=== PATIENT | female | born 1995 | race Caucasian/White ===

== ENCOUNTER 2017-07-22 21:13 | Emergency (ER) | payer MEDICAID ==
[2017-07-22 21:42] VITALS: TEMP 98.2; O2SAT 97
--- NOTE | 2017-07-22 21:52 | EDPHY ---
H & P Stated Complaint: 18 HPI/ROS: HPI CHIEF COMPLAINT: Itchy skin, rash HISTORY OF PRESENT ILLNESS: This patient very pleasant 22-year-old female she is otherwise healthy with no significant medical history she presents emergency room with pruritus, and urticaria diffusely throughout her skin. She denies fever. Denies recent illness. Denies new medications soaps or detergents. She states that this started earlier in the week however it has progressively gotten worse. She has no mucosal lesions. Denies any urinary symptoms denies fever, denies chest pain or shortness of breath. Main complaint diffuse rash, diffuse pruritus. 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 Smokes tobacco daily, denies illicit drugs. Family History: Noncontributory ROS REVIEW OF SYSTEMS: A comprehensive 10 point review of systems is otherwise negative aside from elements mentioned in the history of present illness. Exam Constitutional appears well nontoxic triage nursing summary reviewed, vital signs reviewed, awake/alert. Eyes normal conjunctivae and sclera, EOMI, PERRLA. HENT oropharynx unremarkable mucosal lesions normal inspection, atraumatic, moist mucus membranes, no epistaxis, neck supple/ no meningismus, no raccoon eyes. Respiratory clear to auscultation bilaterally, normal breath sounds, no respiratory distress, no wheezing. Cardiovascular rate normal, regular rhythm, no murmur, no edema, distal pulses normal. Gastrointestinal soft, non-tender, no rebound, no guarding, normal bowel sounds, no distension, no pulsatile mass. Genitourinary no CVA tenderness. Musculoskeletal no midline vertebral tenderness, full range of motion, no calf swelling, no tenderness of extremities, no meningismus, good pulses, neurovascularly intact. Skin diffuse to raise pruritic urticaria ache swallow lesions. Sandpaper like throughout her entire body. No mucosal lesions. Spares the palms and soles. Neurologic awake, alert and oriented x 3, AAOx3, moves all 4 extremities equally, motor intact, sensory intact, CN II-XII intact, normal cerebellar, normal vision, normal speech. Psychiatric normal mood/affect. Heme/Lymph/Immune no lymphadenopathy. Differential Diagnosis: Includes but is not limited to in a particular order acute vasculitis, acute allergic reaction, urticaria, drug reaction, contact dermatitis, pityriasis rosacea Medical Decision Making: Plan for this patient IV establishment IV fluid bolus basic blood work, IV Solu-Medrol,, IV Benadryl, IV Pepcid, and re-evaluate. Re-evaluation: 2307: I did re-evaluate this patient at this time no acute distress. Fact she was sleeping. She received IV Solu-Medrol 125 mg 50 mg IV Benadryl, and Pepcid she is doing much improved. She feels much better in terms of her urticaria type rash it has resolved. It is pretty much clear throughout her body. I went over return precautions with her. She understands return emergency room if develops worsening symptoms. This includes worsening rash, fever, vomiting not feeling well. I will prescribe her prednisone for 5 days per 60 mg, Pepcid, Benadryl that she take daily as well as an epinephrine pen. I do recommend she follows up with a private pilot. Source: Patient - Personal History LMP (Females 10-55): Now Current Tetanus/Diphtheria Vaccine: Yes - Medical/Surgical History Hx Asthma: No Hx Chronic Respiratory Disease: No Hx Diabetes: No Hx Cardiac Disease: No Hx Renal Disease: No Hx Cirrhosis: No Hx Alcoholism: No Hx HIV/AIDS: No Hx Splenectomy or Spleen Trauma: No Other PMH: tonsilectomy, VASOVAGAL SYNCOPE, PRONE TO UTI - Social History Smoking Status: Current every day smoker Constitutional: Initial Vital Signs Temperature (C) 36.8 C 07/22/17 21:38 Heart Rate 80 07/22/17 21:38 Respiratory Rate 20 07/22/17 21:38 Blood Pressure 114/103 H 07/22/17 21:38 O2 Sat (%) 97 07/22/17 21:38 O2 Delivery Mode Room Air Allergies/Adverse Reactions: Penicillins Allergy (Severe, Verified 07/22/17 21:38) Other-Enter Comments Home Medications: Medication Instructions Recorded EPINEPHRINE [EPIPEN] 0.3 mg IM ONCE #2 syr 07/22/17 Famotidine [Pepcid 20 MG (*)] 20 mg PO BID #10 tab 07/22/17 diphenhydrAMINE [Benadryl 25 MG 25 mg PO BID #10 tab 07/22/17 (*)] predniSONE 60 mg PO DAILY #15 tab 07/22/17 Medical Decision Making - Data Points Laboratory Results: Laboratory Results 07/22/17 22:00 07/22/17 22:00 07/22/17 07/22/17 07/22/17 22:00 22:00 22:00 WBC 8.30 10^3/uL 10^3/uL (3.80-9.50) RBC 4.15 10^6/uL L 10^6/uL (4.18-5.33) Hgb 14.0 g/dL g/dL (12.6-16.3) Hct 40.5 % % (38.0-47.0) MCV 97.6 fL fL (81.5-99.8) MCH 33.7 pg pg (27.9-34.1) MCHC 34.6 g/dL g/dL (32.4-36.7) RDW 11.9 % % (11.5-15.2) Plt Count 255 10^3/uL 10^3/uL (150-400) MPV 9.3 fL fL (8.7-11.7) Neut % (Auto) 63.8 % % (39.3-74.2) Lymph % (Auto) 26.6 % % (15.0-45.0) [place] % (Auto) 5.7 % % (4.5-13.0) Eos % (Auto) 2.5 % % (0.6-7.6) Baso % (Auto) 1.2 % % (0.3-1.7) Nucleat RBC Rel Count 0.0 % % (0.0-0.2) Absolute Neuts (auto) 5.29 10^3/uL 10^3/uL (1.70-6.50) Absolute Lymphs (auto) 2.21 10^3/uL 10^3/uL (1.00-3.00) Absolute Monos (auto) 0.47 10^3/uL 10^3/uL (0.30-0.80) Absolute Eos (auto) 0.21 10^3/uL 10^3/uL (0.03-0.40) Absolute Basos (auto) 0.10 10^3/uL 10^3/uL (0.02-0.10) Absolute Nucleated RBC 0.00 10^3/uL 10^3/uL (0-0.01) Immature Gran % 0.2 % % (0.0-1.1) Immature Gran # 0.02 10^3/uL 10^3/uL (0.00-0.10) Sodium 137 mEq/L mEq/L (135-145) Potassium 4.0 mEq/L mEq/L (3.5-5.2) Chloride 100 mEq/L mEq/L (97-110) Carbon Dioxide 28 mEq/l mEq/l (22-31) Anion Gap 9 mEq/L mEq/L (8-16) BUN 13 mg/dL mg/dL (7-23) Creatinine 0.8 mg/dL mg/dL (0.6-1.0) Estimated GFR > 60 Glucose 97 mg/dL mg/dL (70-100) Calcium 9.5 mg/dL mg/dL (8.5-10.4) Total Bilirubin 1.0 mg/dL mg/dL (0.1-1.4) Conjugated Bilirubin 0.3 mg/dL mg/dL (0.0-0.5) Unconjugated Bilirubin 0.7 mg/dL mg/dL (0.0-1.1) AST 33 IU/L IU/L (14-46) ALT 34 IU/L IU/L (9-52) Alkaline Phosphatase 43 IU/L IU/L (38-126) Total Protein 7.3 g/dL g/dL (6.3-8.2) Albumin 4.3 g/dL g/dL (3.5-5.0) Beta HCG, Qual NEGATIVE Medications Given: Discontinued Medications Diphenhydramine HCl (Benadryl Injection) 50 mg IVP EDNOW ONE Stop: 07/22/17 22:00 Last Admin: 07/22/17 22:06 Dose: 50 mg Famotidine (Pepcid) 20 mg IVP EDNOW ONE Stop: 07/22/17 22:00 Last Admin: 07/22/17 22:12 Dose: 20 mg Sodium Chloride (Ns) 1,000 mls @ 0 mls/hr IV EDNOW ONE; Wide Open PRN Reason: Protocol Stop: 07/22/17 21:59 Last Admin: 07/22/17 22:05 Dose: 1,000 mls Methylprednisolone Sodium Succinate (Solu-Medrol) 125 mg IVP EDNOW ONE Stop: 07/22/17 22:00 Last Admin: 07/22/17 22:09 Dose: 125 mg Departure - Departure Disposition: Home, Routine, Self-Care Clinical Impression: Allergic reaction Qualifiers: Encounter type: initial encounter Qualified Code(s): T78.40XA - Allergy, unspecified, initial encounter Condition: Good Instructions: Urticaria (ED), Allergy Testing (ED) Additional Instructions: 1. Return emergency room if you have any worsening symptoms questions or concerns. 2. Specifically return if you have worsening rash or allergic reaction type symptoms. 3. Prednisone for 5 days 4. Benadryl for 5 days 5. Pepcid for 5 days 6. Follow up with an private pilot. 7. Administered epinephrine pen if you have severe allergic reaction and immediately call 911. Referrals: NONE *PRIMARY CARE P,. [Primary Care Provider] - As per Instructions Prescriptions: diphenhydrAMINE [Benadryl 25 MG (*)] 25 mg PO BID #10 tab EPINEPHRINE [EPIPEN] 0.3 mg IM ONCE #2 syr Famotidine [Pepcid 20 MG (*)] 20 mg PO BID #10 tab predniSONE 60 mg PO DAILY #15 tab
[2017-07-22] MEDS ORDERED: NS 1,000 ML IV ONE (21:58)
[2017-07-22] MEDS ORDERED: FAMOTIDINE 20 MG/2 ML SDV IVP ONE (21:59)
[2017-07-22] MEDS ORDERED: methylPREDNISolone SOD SUCC 125 MG/2 ML VIAL IVP ONE (21:59)
[2017-07-22 22:15] LABS: PLATELET COUNT 255 10^3/uL (150-400)
[2017-07-22 22:55] VITALS: RESP 16
[2017-07-22 23:20] VITALS: BP 110/85; PULSE 77
== END 2017-07-22 23:20 | disposition home or self-care (01) ==
PROC: 3E0337Z Introduction of Electrolytic and Water Balance Substance into Peripheral Vein, Percutaneous Approach (ICD-10-PCS; principal; 2017-07-22)
DX: T78.40XA Allergy, unspecified, initial encounter (principal); F17.200 Nicotine dependence, unspecified, uncomplicated; E86.9 Volume depletion, unspecified
CPT/HCPCS: 96374; J1200; J2930

== ENCOUNTER 2017-07-24 12:19 | Emergency (ER) | payer MEDICAID ==
[2017-07-24 12:24] VITALS: BP 123/73; PULSE 77; RESP 18; TEMP 98.1; O2SAT 97
--- NOTE | 2017-07-24 12:52 | EDPHY ---
H & P Stated Complaint: rash, recently here, not better Time Seen by Provider: 07/24/17 12:35 HPI/ROS: Chief Complaint: Hives HPI: 22-year-old woman has been having worsening hives for the last 10 days. She was seen here 2 days ago and started on prednisone, Pepcid and diphenhydramine. She has been taking these. This morning she noticed that the hives or forearm seem to become confluent. She has an appointment with a new a primary care physician today is planning to get a referral to an turner off. No shortness of breath or swelling. No cough. No lightheadedness or fainting. No new food or environmental exposures that she is aware of. No fevers or chills. It is pruritic but not painful. No other medical problems. ROS: 10 point Review of Systems is negative except as noted in the HPI. PMH: Vasovagal syncope Social History: [No] smoking, [no] alcohol, [ no recreational drug use] Family History: [non-contributory] Physical Exam: Gen: [Awake], [Alert], [No Distress] HEENT: [ ] [Nose: no rhinorrhea] Eyes: [PERRLA], [EOMI] Mouth: [Moist mucosa] no oral pharyngeal area edema, uvula is midline Neck: [Supple], [no JVD] Chest: [nontender], [lungs clear to auscultation] Heart: [S1, S2 normal], [no murmur] Abd: [Soft], [non-tender], [no guarding] Back: [no CVA tenderness], [no] midline tenderness [] Ext: [no] edema, [non-tender] Skin: Diffuse urticarial blanching rash primarily on the abdomen legs and arms. She has positive dermatographia. Neuro: [CN II-XII intact], [Sensation grossly intact], Strength [5]/5 in [ bilateral] [upper and] [lower] extremities - Personal History LMP (Females 10-55): Now Current Tetanus/Diphtheria Vaccine: Yes Current Tetanus Diphtheria and Acellular Pertussis (TDAP): Yes - Medical/Surgical History Hx Asthma: No Hx Chronic Respiratory Disease: No Hx Diabetes: No Hx Cardiac Disease: No Hx Renal Disease: No Hx Cirrhosis: No Hx Alcoholism: No Hx HIV/AIDS: No Hx Splenectomy or Spleen Trauma: No Other PMH: tonsilectomy, VASOVAGAL SYNCOPE, PRONE TO UTI - Social History Smoking Status: Current every day smoker Constitutional: Initial Vital Signs Temperature (C) 36.7 C 07/24/17 12:23 Heart Rate 77 07/24/17 12:23 Respiratory Rate 18 07/24/17 12:23 Blood Pressure 123/73 H 07/24/17 12:23 O2 Sat (%) 97 07/24/17 12:23 O2 Delivery Mode Room Air Allergies/Adverse Reactions: Penicillins Allergy (Severe, Verified 07/22/17 21:38) Other-Enter Comments Home Medications: Medication Instructions Recorded EPINEPHRINE [EPIPEN] 0.3 mg IM ONCE #2 syr 07/22/17 Famotidine [Pepcid 20 MG (*)] 20 mg PO BID #10 tab 07/22/17 diphenhydrAMINE [Benadryl 25 MG 25 mg PO BID #10 tab 07/22/17 (*)] predniSONE 60 mg PO DAILY #15 tab 07/22/17 Medical Decision Making ED Course/Re-evaluation: 22-year-old patient with hives. No airway involvement or findings suggestive of anaphylaxis. She has positive dermatographia. She has an appointment this afternoon with primary care. I think she will be best served by follow up with an turner off. I do not have any recommendations regarding her medication regimen at this time. She will return for any symptoms of angioedema, anaphylaxis including difficulty breathing, swelling, fainting, lightheadedness , or any other concerns. Departure - Departure Disposition: Home, Routine, Self-Care Clinical Impression: Urticaria Condition: Good Instructions: Urticaria (ED) Additional Instructions: Follow up with primary care physician today for referral to an turner off. Return to the emergency department for difficulty breathing, cough, shortness of breath, fainting, or any other concerns. Referrals: NONE *PRIMARY CARE P,. [Primary Care Provider] - As per Instructions
== END 2017-07-24 13:06 | disposition home or self-care (01) ==
DX: L50.9 Urticaria, unspecified (principal); F17.200 Nicotine dependence, unspecified, uncomplicated